=== PATIENT | male | born 1995 | race Caucasian/White ===

== ENCOUNTER → 2018-11-29 | Outpatient (CLI) | payer OTHER ==
--- NOTE | 2018-11-29 14:18 | REP ---
MAXILLOFACIAL CT WITHOUT CONTRAST: HISTORY: Chronic sinusitis. Minimal mucosal thickening is present in the ethmoid sinus and maxillary sinuses. The remaining sinuses are clear. Mucosal thickening involves the osteomeatal units. The middle and inferior nasal turbinates are partially paradoxical. The nasal septum is midline. The cribriform, medial hadley of the orbits and optic canals are intact. There is aeration of left anterior clinoid process. The carotid canals form a segment of the posterior lateral hadley of the sphenoid sinus. IMPRESSION:Sinus mucosal thickening as described above. Electronically Signed by Chandler Robles MD 11/29/2018 02:21 P
== END ==
LOC: M RAD 13:32
PROVIDERS: ATTEND Otolaryngology
DX: J32.4 Chronic pansinusitis (principal)

== ENCOUNTER 2019-01-11 08:05 | Day surgery (SDC) | payer OTHER ==
[~2019-01-11] VITALS: Ht 182.9 cm; Wt 117.9 kg
[2019-01-11] MEDS ORDERED: LIDOCAINE W/EPINEPHRINE 1% 20ML VIAL As Ordered ONE (09:16)
[2019-01-11] MEDS ORDERED: BUPIVACAINE/EPIN 0.5% 30 ML VIAL As Ordered ONE (09:16)
[2019-01-11] MEDS ORDERED: PROPOFOL 200 MG/20 ML VIAL As Ordered ONE (09:37)
[2019-01-11] MEDS ORDERED: fentaNYL 250 MCG/5 ML INJECTION (J3010) As Ordered ONE (09:37)
[2019-01-11] MEDS ORDERED: LIDOCAINE 2% INJ 100 MG/5 ML SDV (FOR ANES.) As Ordered ONE (09:37)
[2019-01-11] MEDS ORDERED: MIDAZOLAM INJ 2 MG/2 ML VIAL (J2250) As Ordered ONE (09:37)
[2019-01-11] MEDS ORDERED: ROCURONIUM BROMIDE 50 MG/5 ML VIAL As Ordered ONE (09:37)
[2019-01-11] MEDS ORDERED: SUCCINYLCHOLINE 100 MG/5 ML SYRINGE (J0330) As Ordered ONE (09:37)
[2019-01-11] MEDS ORDERED: dexameTHASONE 4 MG/ML 1ML VIAL (J1100) As Ordered ONE (09:37)
[2019-01-11] MEDS ORDERED: ONDANSETRON 4MG/2ML VIAL (J2405) As Ordered ONE (09:37)
[2019-01-11] MEDS ORDERED: SUGAMMADEX SODIUM 500 MG/5 ML VIAL (BRIDION) As Ordered ONE (10:05)
[2019-01-11] MEDS ORDERED: fentaNYL 100 MCG/2 ML INJECTION (J3010) As Ordered ONE (10:32)
[2019-01-11] MEDS: fentaNYL 100 MCG/2 ML INJECTION (J3010) IV PRN ×4 (10:35→10:50)
[2019-01-11] MEDS ORDERED: PERCOCET 5MG/325MG TAB As Ordered ONE (10:38)
[2019-01-11] MEDS: PERCOCET 5MG/325MG TAB PO PRN ×2 (10:39→11:09)
[2019-01-11] MEDS ORDERED: NORCO, ANEXSIA 5/325MG TABLET (HYDROcodone/ACETAMINOPHEN) PO PRN (10:45)
[2019-01-11] MEDS ORDERED: METOCLOPRAMIDE INJ 10MG/2ML VIAL (J2765) IV PRN (10:45)
[2019-01-11] MEDS ORDERED: LR 1,000 ML IV SCH ×2 (10:45)
[2019-01-11] MEDS ORDERED: ONDANSETRON 4MG/2ML VIAL (J2405) IV PRN (10:45)
--- NOTE | 2019-01-11 12:28 | RO ---
DATE OF PROCEDURE: 01/11/2019 PREOPERATIVE DIAGNOSIS: Chronic tonsillitis. POSTOPERATIVE DIAGNOSIS: Chronic tonsillitis. OPERATIVE PROCEDURE: Tonsillectomy. SURGEON: Dr. Fareed Bishop LIBRARY ASSISTANT: ANESTHESIA: DESCRIPTION OF PROCEDURE: Under general anesthesia with the patient intubated, a Palacios-Wilfred mouth gag was inserted. The tonsil area was infiltrated with lidocaine and 0.50% Marcaine. Using cautery, I dissected the tonsils free. Vessels seen were cauterized. Very little bleeding. I trimmed the uvula because it was very, very long. The patient tolerated the procedure well. The patient was extubated and transferred to the recovery room in excellent condition.
[2019-01-11 13:00] VITALS: BP 146/75
== END 2019-01-11 14:07 | disposition home or self-care (01) ==
LOC: M SDC 08:05
PROVIDERS: ATTEND Otolaryngology
DX: J35.01 Chronic tonsillitis (principal); E78.5 Hyperlipidemia, unspecified; Z91.018 Allergy to other foods
CPT/HCPCS: 42826; 88302; J0330; J1100; J2250; J2405; J3010